=== PATIENT | male | born 1945 | race Caucasian/White ===

== ENCOUNTER → 2016-05-29 | Outpatient (CLI) | payer MEDICARE, BC ==
--- NOTE | 2016-05-30 16:52 | XCELERA REPORT ---
[address] [address] Lower Extremity Arterial Evaluation Name: MANDO SINGER Age: 71 yrs Gender: Male : 1945 Patient Status: Outpatient Patient Location: RAD Study Date: 05/29/2016 01:52 PM Procedure: A color flow and duplex scan of the lower extremity arteries was performed bilaterally with velocity and waveform anaylsis. Ankle brachial indicies performed. Reason For Study: PVD Ordering Physician: JAZLYN LI Performed By: Michaela Agrawal Measurements and Calculations Right Left PROCESS MANAGER PSV 94.8 74.6 cm/sec Prox PFA PSV -61.9 -40.4 cm/sec Prox SFA PSV -91.2 68.8 cm/sec Mid SFA PSV 68.4 -48.8 cm/sec Dist SFA PSV -60.4 -44.6 cm/sec Prox Pop A PSV 68.0 43.8 cm/sec Dist ALMA PSV 34.0 48.3 cm/sec Dist RETAIL ATTENDANT PSV 57.3 52.2 cm/sec Dylan Pedis PSV 25.1 42.4 cm/sec Right Side Arterial Evaluation Normal velocity, waveform and triphasic flow are present, from the Common Femoral artery down to the infrageniculate vessels. The ankle-brachial index is 1.1. 0% stenosis is noted. Left Side Arterial Evaluation Normal velocity, waveform and triphasic flow are present, from the Common Femoral artery down to the infrageniculate vessels. The ankle-brachial index is 1.08. 0% stenosis is noted. Interpretation Summary No hemodynamically significant lesions in the bilateral lower extremities, on duplex imaging, at rest. : JAZLYN LI > Fredi Ward
== END ==
LOC: RAD 12:27
PROVIDERS: ATTEND Physical Medicine & Rehabilitation
DX: M79.605 Pain in left leg (principal); I73.9 Peripheral vascular disease, unspecified; G81.11 Spastic hemiplegia affecting right dominant side
CPT/HCPCS: 72148; 93925

== ENCOUNTER → 2016-10-24 | Outpatient (CLI) | payer MEDICARE, BC ==
--- NOTE | 2016-10-24 15:31 | RADIOLOGY REPORT (SQ) ---
EXAM DESCRIPTION: MRI CERVICAL SPINE WITHOUT COMPLETED DATE/TIME: 10/24/2016 2:34 pm REASON FOR STUDY: LUMBAR (M54.16) AND CERVICAL (M54.12) RADICULOPATHY M54.12 RADICULOPATHY, CERVICA L REGION M54.16 RADICULOPATHY, LUMBAR REGION COMPARISON: Cervical spine plain films 10/24/2016 TECHNIQUE: Sagittal and Axial imaging includes T1, T2, STIR and gradient echo sequences. LIMITATIONS: None. FINDINGS: ALIGNMENT: Normal. VERTEBRAE: Intact. BONE MARROW: Normal. No marrow replacement or reactive changes. DISCS: Diffuse decreased T2 weighted intervertebral disc signal. Ankylosis across the C3-4 disc spac e. HARDWARE: None in the spine. CORD AND BASE OF BRAIN: Normal in size and signal intensity. SOFT TISSUES: No soft tissue masses. C1-C2: No significant spinal stenosis. C2-C3: No significant spinal stenosis or exit foraminal stenosis. C3-C4: No significant spinal stenosis or exit foraminal stenosis. C4-C5: Mild diffuse posterior disc bulge and bony spurring is present partly effacing the ventral the dee sac. No cord flattening. Borderline central canal narrowing. High-grade right, moderate left f oraminal narrowing. C5-C6: Mild diffuse posterior disc bulge and bony spurring is present partly effacing the ventral the dee sac. No cord flattening or abnormal intrinsic cord signal. Borderline central canal stenosis. Moderate to high-grade foraminal narrowing bilaterally. C6-C7: Mild diffuse posterior disc bulging is present without central canal narrowing. Moderate righ t, mild left foraminal narrowing. C7-T1: No significant spinal stenosis or exit foraminal stenosis. UPPER THORACIC: Incompletely imaged. No significant spinal stenosis or exit foraminal stenosis. OTHER: No other significant finding. IMPRESSION: Degenerative changes as above TECHNICAL DOCUMENTATION: JOB ID: [id number] [employer]- All Rights Reserved
--- NOTE | 2016-10-24 15:39 | RADIOLOGY REPORT (SQ) ---
EXAM DESCRIPTION: CERV SP 6 OR MORE COMPLETED DATE/TIME: 10/24/2016 3:20 pm REASON FOR STUDY: LUMBAR (M54.16) AND CERVICAL (M54.12) RADICULOPATHY M54.12 RADICULOPATHY, CERVICA L REGION M54.16 RADICULOPATHY, LUMBAR REGION COMPARISON: MRI cervical spine same date NUMBER OF VIEWS: Seven views. TECHNIQUE: AP, lateral, obliques, flexion, extension, and odontoid radiographic images acquired of t he cervical spine. LIMITATIONS: On lateral view, there is limited visualization of C6-7 and C7-T1 FINDINGS: MINERALIZATION: Osteopenic ALIGNMENT: Convex leftward cervical curvature FLEXION/EXTENSION: No instability. VERTEBRAE: Vertebral bodies of normal height. DISCS: Diffuse disc space loss of height. Ankylosis at the C3-4 disc level FORAMINA: On the right side, moderate to high-grade C4-5, high-grade C5-6 foraminal narrowing is pres ent. On the left side, high-grade left C4-5 and C5-6 foraminal narrowing is present. LATERAL AND POSTERIOR ELEMENTS: Facets, lateral masses, and spinous processes without significant fin dings. HARDWARE: None in the spine. SOFT TISSUES: No masses or calcifications. Lung apices clear. OTHER: No other significant finding. IMPRESSION: Diffuse degenerative changes as above. NO INSTABILITY ON FLEXION/EXTENSION. TECHNICAL DOCUMENTATION: JOB ID: [id number] [employer]- All Rights Reserved
--- NOTE | 2016-10-24 16:18 | RADIOLOGY REPORT (SQ) ---
EXAM DESCRIPTION: L SPINE W/FLEX/EXT COMPLETED DATE/TIME: 10/24/2016 3:20 pm REASON FOR STUDY: LUMBAR (M54.16) AND CERVICAL (M54.12) RADICULOPATHY M54.12 RADICULOPATHY, CERVICA L REGION M54.16 RADICULOPATHY, LUMBAR REGION COMPARISON: MRI lumbar spine 05/29/2016 new NUMBER OF VIEWS: Seven views. TECHNIQUE: AP, lateral, obliques, flexion, extension, and sacral radiographic images acquired. LIMITATIONS: None. FINDINGS: MINERALIZATION: Osteopenic SEGMENTATION: Normal. No transitional anatomy. ALIGNMENT: Convex rightward upper lumbar curvature. Minimal anterolisthesis of L4 over L5. FLEXION/EXTENSION: No instability. VERTEBRAE: Maintained height. No fracture or worrisome bone lesion. DISCS: Mild disc space loss of height at L4-5 and L5-S1. POSTERIOR ELEMENTS: Pedicles and facets are intact. No pars defect or posterior arch defects. Diffu se facet arthropathy HARDWARE: None in the spine. PARASPINAL SOFT TISSUES: Normal. PELVIS: Intact as visualized. No fractures or worrisome bone lesions. SI joints intact. OTHER: No other significant finding. IMPRESSION: Minimal grade 1 anterolisthesis of L4 over L5 from advanced facet arthropathy. No insta bility on flexion/extension. Diffuse facet arthropathy. Convex rightward upper lumbar curvature TECHNICAL DOCUMENTATION: JOB ID: [id number] [employer]- All Rights Reserved
== END ==
LOC: RAD 13:15
PROVIDERS: ATTEND Specialist
DX: M54.12 Radiculopathy, cervical region (principal); M54.16 Radiculopathy, lumbar region
CPT/HCPCS: 72050; 72114; 72141

== ENCOUNTER → 2017-04-08 | Outpatient (CLI) | payer MEDICARE, BC ==
--- NOTE | 2017-04-08 11:38 | RADIOLOGY REPORT (SQ) ---
EXAM DESCRIPTION: SPINE SINGLE VIEW COMPLETED DATE/TIME: 04/08/2017 11:25 am REASON FOR STUDY: RADICULOPATHY, LUMBAR REGION COMPARISON: October 2016 TECHNIQUE: AP view of the lumbar spine. LIMITATIONS: None. FINDINGS: Thoracolumbar scoliosis convex to the right is again identified. Post laminectomy changes are identified at the L4 and L5 levels. IMPRESSION: Thoracolumbar scoliosis convex to the right is again identified. Postsurgical changes a s noted above. TECHNICAL DOCUMENTATION: JOB ID: [id number] [employer]- All Rights Reserved
--- NOTE | 2017-04-08 11:40 | RADIOLOGY REPORT (SQ) ---
EXAM DESCRIPTION: L SPINE FLEX/EXT ONLY COMPLETED DATE/TIME: 04/08/2017 11:25 am REASON FOR STUDY: M54.16 RADICULOPATHY, LUMBAR REGION M54.16 RADICULOPATHY, LUMBAR REGION COMPARISON: October 2016 NUMBER OF VIEWS: Two views TECHNIQUE: Lateral flexion and extension views. LIMITATIONS: None. FINDINGS: MINERALIZATION: Bony structures are somewhat osteopenic. SEGMENTATION: Normal. No transitional anatomy. ALIGNMENT: There is minimal anterolisthesis of L 3 in relation L4 and L 4 in relation L5. FLEXION/EXTENSION: No instability. VERTEBRAE: Maintained height. No fracture or worrisome bone lesion. DISCS: Again there is multilevel disc space reduction with some minimal associated anterior osteophyt ic lipping. POSTERIOR ELEMENTS: Pedicles and facets are intact. Post laminectomy changes are identified at the L 4 and L5 levels. No pars defect is identified. Degenerative changes are again identified in the fac et articulations at the L3, L 4, and L5 levels. HARDWARE: None in the spine. OTHER: No other significant finding. IMPRESSION: Degenerative changes as noted above. NO INSTABILITY ON FLEXION/EXTENSION. TECHNICAL DOCUMENTATION: JOB ID: [id number]- All Rights Reserved
--- NOTE | 2017-04-08 12:52 | RADIOLOGY REPORT (SQ) ---
EXAM DESCRIPTION: MRI LUMBAR SPINE COMBO COMPLETED DATE/TIME: 04/08/2017 12:28 pm REASON FOR STUDY: M54.16 RADICULOPATHY, LUMBAR REGION M54.16 RADICULOPATHY, LUMBAR REGION COMPARISON: 05/29/2016. TECHNIQUE: Sagittal and Axial imaging includes T1, T1 post gadolinium, T2, STIR and gradient echo se quences. Coronal T2/HASTE imaging. CONTRAST TYPE AND DOSE: 20 mL Multihance. RENAL FUNCTION: GFR > 60. LIMITATIONS: Motion artifact limits detailed visualization. FINDINGS: VISUALIZED UPPER ABDOMEN: Limited evaluation. No acute or suspicious findings suggested. SEGMENTATION: No transitional anatomy. The lowest well-developed disc space is labeled L5-S1. ALIGNMENT: Mild grade 1 anterolisthesis of L 4 on L5, unchanged. VERTEBRAE: Intact. No fractures. BONE MARROW: Normal. No marrow replacement or reactive changes. DISC SIGNAL: Normal. No significant abnormal signal or loss of height. POSTERIOR ELEMENTS: Interval laminectomy in the lower lumbar spine. Otherwise intact. HARDWARE: None in the spine. CORD AND CONUS: Normal in size and signal intensity. Conus at the appropriate level. SOFT TISSUES: No aortic aneurysm seen. No bulky retroperitoneal adenopathy or mass. No paraspinal mas s or fluid. L1-L2: No significant disc bulge. Mild -moderate facet arthropathy No significant spinal stenosis or exit foraminal stenosis. L2-L3: No significant disc bulge. Facet arthropathy, worse on the left. Mild spinal stenosis. Mild -moderate left exit foraminal stenosis. L3-L4: Mild diffuse posterior annular disc bulge. Moderate facet arthropathy. Mild spinal stenosis and exit foraminal stenosis. L4-L5: Mild diffuse posterior annular bulge. Moderate facet arthropathy. Decompressive laminectomy. No significant spinal stenosis. Moderate exit foraminal stenosis. L5-S1: No significant disc bulge. Moderate facet arthropathy. Decompressive laminectomy. No signif icant spinal stenosis or exit foraminal stenosis. LOWER THORACIC: Incompletely imaged. No stenosis seen. SACRUM: Visualized upper sacrum intact. ENHANCEMENT: No abnormal enhancement. OTHER: No other significant findings. IMPRESSION: STUDY LIMITED BY MOTION ARTIFACT. GRADE 1 ANTEROLISTHESIS OF L4 ON L5 UNCHANGED. INTER EDWARD DECOMPRESSIVE LAMINECTOMY IN THE LOWER LUMBAR SPINE. PREVIOUSLY SEEN AREAS OF CENTRAL CANAL STEN OSIS AT L4-L5 AND L5-S1 HAVE BEEN RELIEVED DUE TO POSTERIOR DECOMPRESSION. OTHER CHRONIC DEGENERATIV E CHANGES AGAIN NOTED, UNCHANGED. TECHNICAL DOCUMENTATION: JOB ID: [id number] [employer]- All Rights Reserved
== END ==
LOC: RAD 11:09
PROVIDERS: ATTEND Specialist
DX: M54.16 Radiculopathy, lumbar region (principal); M41.85 Other forms of scoliosis, thoracolumbar region
CPT/HCPCS: 82565; 72158; 72120; 72020; A9577

== ENCOUNTER → 2018-02-27 | Outpatient (CLI) | payer MEDICARE, BC ==
--- NOTE | 2018-02-27 15:46 | RADIOLOGY REPORT (SQ) ---
EXAM DESCRIPTION: UGI SERIES COMPLETED DATE/TIME: 02/27/2018 10:07 am REASON FOR STUDY: *AND BASW* COUGH (R05) R05 COUGH COMPARISON: None. TECHNIQUE: Under fluoroscopic guidance, patient ingested effervescent granules followed by thick and thin barium. Fluoroscopic spot images and routine radiographic images acquired and stored on PACS. 12 MM BARIUM TABLET GIVEN: Yes. No significant delay in passage. LIMITATIONS: None. FLUOROSCOPY TIME: FLUORO TIME: 2.1 MINUTES 16 series of digital images saved to PACS. FINDINGS: NEUROMUSCULAR COORDINATION OF SWALLOW: Normal. No aspiration. ESOPHAGEAL MOTILITY: Normal peristalsis. No esophageal spasm. ESOPHAGEAL MUCOSA: Normal mucosa without masses or ulceration. GASTRO-ESOPHAGEAL JUNCTION: Small hiatal hernia. Unprovoked gastroesophageal reflux to the cervical esophagus. STOMACH: Normal without masses or ulcerations. GASTRIC OUTLET: No delay in emptying. Normal pylorus. DUODENAL BULB: Normal distention. No spasm or ulceration. DUODENUM: Mucosa normal. No extrinsic masses or malrotation. PROXIMAL SMALL BOWEL: Mucosa normal. No extrinsic masses or malrotation. NON-GI TRACT STRUCTURES: No significant finding. OTHER: No other significant finding. IMPRESSION: Small hiatal hernia with gastroesophageal reflux to the cervical esophagus COMMENT: Quality ID 145: Final reports for procedures using fluoroscopy that document radiation exp osure indices, or exposure time and number of fluorographic images (if radiation exposure indices are not available) TECHNICAL DOCUMENTATION: JOB ID: [id number] [employer]- All Rights Reserved Reading location - IP/workstation name: [facility]
== END ==
LOC: RAD 08:24
PROVIDERS: ATTEND Internal Medicine
DX: R05 Cough (principal)
CPT/HCPCS: 74247

== ENCOUNTER → 2020-04-04 | Outpatient (CLI) | payer MEDICARE, BC ==
--- NOTE | 2020-04-04 13:41 | RADIOLOGY REPORT (SQ) ---
EXAM DESCRIPTION: COOKIE SWALLOW IMAGES COMPLETED DATE/TIME: 04/04/2020 9:22 am REASON FOR STUDY: DYSPHAGIA R13.10 DYSPHAGIA, UNSPECIFIED TRAUMATIC BRAIN INJURY COMPARISON: None. TECHNIQUE: Videofluoroscopic swallowing examination was performed in conjunction with speech patholo gy. Videofluoroscopic imaging was obtained and reviewed and these are the findings: RADIATION DOSE: 1 minutes 51 seconds of fluoroscopy was used. 2 images saved to PACS. LIMITATIONS: None FINDINGS: The patient was brought into the fluoro room and placed upright on a modified barium swall ow chair. The patient was then given multiple consistencies mixed with barium to swallow under live fluoroscopic video guidance. According to the Speech Pathologist there was deep laryngeal penetratio n to level of the cords. No aspiration seen. IMPRESSION: DEEP LARYNGEAL PENETRATION WITHOUT ASPIRATION. PLEASE SEE SPEECH PATHOLOGIST REPORT FOR OTHER FINDINGS AND RECOMMENDATIONS. COMMENT: Quality ID 145: Final reports for procedures using fluoroscopy that document radiation exp osure indices, or exposure time and number of fluorographic images (if radiation exposure indices are not available) TECHNICAL DOCUMENTATION: JOB ID: [id number] [employer]- All Rights Reserved Reading location - IP/workstation name: [facility]
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
== END ==
LOC: RAD 08:08
PROVIDERS: ATTEND Internal Medicine
DX: R13.10 Dysphagia, unspecified (principal)
CPT/HCPCS: 74230